=== PATIENT | male | born 1970 | race Caucasian/White ===

== ENCOUNTER 2017-08-01 02:06 | Emergency (ER) | payer MEDICAID ==
[~2017-08-01] VITALS: Ht 177.8 cm; Wt 104.7 kg
[~2017-08-01 02:06] MED LIST: ACET-75 PO; ASPI-611 PO; CLOP75TA33 PO; DULO60CA64 PO; GABA600T2 PO; ISOS30TA6 PO; LISI10TA4 PO; PRAV20TA PO; TRAM50TA2 PO
[2017-08-01] MEDS ORDERED: diazepam 5mg tablet PO ONE (02:15)
[2017-08-01] MEDS ORDERED: ketorolac trometh. 30mg/ml inj. IM ONE (02:15)
[2017-08-01 02:43] VITALS: BP 137/100
== END 2017-08-01 02:45 | disposition home or self-care (01) ==
LOC: ER 02:06
DX: G89.29 Other chronic pain (principal); M54.5 Low back pain; F12.10 Cannabis abuse, uncomplicated; I25.10 Atherosclerotic heart disease of native coronary artery without angina pectoris; E78.00 Pure hypercholesterolemia, unspecified; I10 Essential (primary) hypertension; Z95.5 Presence of coronary angioplasty implant and graft; Z79.82 Long term (current) use of aspirin; Z79.899 Other long term (current) drug therapy
CPT/HCPCS: 96372; 99283; J1885

== ENCOUNTER 2017-11-22 19:13 | Emergency (ER) | payer MEDICAID ==
[~2017-11-22] VITALS: Ht 177.8 cm; Wt 109.0 kg
[2017-11-22] MEDS: nitroGLYCERIN 0.4mg SUBLingual tab SL PRN ×2 (19:32→19:41)
[2017-11-22 19:33] LABS: BASOPHILS % (AUTO) 0.4 % (0-1); EOSINOPHILS # (AUTO) 0.3 X10'3 (0-0.9); HEMATOCRIT 40.8 % (42.0-52.0); HEMOGLOBIN 13.7 g/dl (14.0-17.9); LYMPHOCYTES # (AUTO) 2.8 X10'3 (1.1-4.8); LYMPHOCYTES % (AUTO) 32.3 % (21-51); MEAN CORPUSCULAR HEMOGLOBIN 29.1 PG (27.0-31.0); MEAN CORPUSCULAR HGB CONC 33.5 % (33.0-36.5); MEAN CORPUSCULAR VOLUME 86.8 FL (78-98); MEAN PLATELET VOLUME 6.6 FL (7.4-10.4); MONOCYTES # (AUTO) 0.8 X10'3 (0-0.9); MONOCYTES % (AUTO) 9.5 % (2-12); NEUTROPHILS # (AUTO) 4.8 X10'3 (1.8-7.7); NEUTROPHILS % (AUTO) 54.8 % (42-75); PLATELET COUNT 368 X10'3 (140-440); WHITE BLOOD COUNT 8.7 X10'3 (4.5-11.0)
[2017-11-22 19:53] LABS: PARTIAL THROMBOPLASTIN TIME 27 SECONDS (22-32); PROTHROMBIN TIME 10.1 SECONDS (9.0-12.0)
[2017-11-22 19:58] LABS: ALANINE AMINOTRANSFERASE 27 U/L (12-78); ALBUMIN/GLOBULIN RATIO 1.2 (1.1-1.5); ALKALINE PHOSPHATASE 87 IU/L (46-116); ANION GAP 9 (8-16); ASPARTATE AMINO TRANSFERASE 11 U/L (10-37); BILIRUBIN,TOTAL 0.3 MG/DL (0.1-1.0); BLOOD UREA NITROGEN 7 MG/DL (7-18); BUN/CREATININE RATIO 6.1 (5.4-32.0); CALCIUM 8.9 MG/DL (8.5-10.1); CHLORIDE 106 MMOL/L (99-107); CREATININE 1.14 MG/DL (0.60-1.10); GLUCOSE 101 MG/DL (70-104); POTASSIUM 4.1 MMOL/L (3.5-5.1); SODIUM 139 MMOL/L (135-145); TOTAL CARBON DIOXIDE 24.1 MMOL/L (24-32); TOTAL PROTEIN 7.3 G/DL (6.4-8.2); eGFR 69 ML/MIN
[2017-11-22] MEDS ORDERED: morphine 4 MG/ML inj SYRINge IV ONE ×2 (20:00→22:20)
[2017-11-22 23:27] VITALS: BP 134/93
== END 2017-11-22 23:31 | disposition home or self-care (01) ==
LOC: ER 19:13
DX: R07.89 Other chest pain (principal); R06.02 Shortness of breath; I25.10 Atherosclerotic heart disease of native coronary artery without angina pectoris; E78.00 Pure hypercholesterolemia, unspecified; I10 Essential (primary) hypertension; G89.29 Other chronic pain; F12.10 Cannabis abuse, uncomplicated; Z98.62 Peripheral vascular angioplasty status; Z79.82 Long term (current) use of aspirin; Z79.899 Other long term (current) drug therapy
CPT/HCPCS: 36415; 71045; 80053; 84484; 85025; 85610; 85730; 93005; 96374; 96376; 99285; J2270

== ENCOUNTER 2017-12-06 18:57 | Emergency (ER) | payer MEDICAID ==
[~2017-12-06] VITALS: Ht 177.8 cm; Wt 102.3 kg
[2017-12-06] MEDS ORDERED: LORazepam 2 mg/ml vial IV ONE (20:45)
[2017-12-06] MEDS ORDERED: ketorolac trometh. 30mg/ml inj. IV ONE (20:45)
[2017-12-06] MEDS ORDERED: ondansetron/PF 4mg/2ml inj IV ONE (20:50)
[2017-12-06] MEDS ORDERED: normal saline 1000ML IV soln IVB ONE (20:50)
[2017-12-06 21:32] VITALS: BP 158/98
== END 2017-12-06 21:33 | disposition home or self-care (01) ==
LOC: ER 18:57
DX: R51 Headache (principal); R11.2 Nausea with vomiting, unspecified; F12.10 Cannabis abuse, uncomplicated; I25.10 Atherosclerotic heart disease of native coronary artery without angina pectoris; E78.00 Pure hypercholesterolemia, unspecified; I10 Essential (primary) hypertension; G89.29 Other chronic pain; Z98.61 Coronary angioplasty status; Z79.82 Long term (current) use of aspirin; Z79.899 Other long term (current) drug therapy
CPT/HCPCS: 96361; 96374; 96375; 99284; J1885; J2060; J2405; J7030

== ENCOUNTER 2021-02-04 12:51 | Observation (INO) | payer MEDICAID ==
[~2021-02-04] VITALS: Ht 177.8 cm; Wt 104.5 kg
[~2021-02-04 12:51] MED LIST changes: -DULO60CA64 PO; +DULO60CA65 PO; +GABA600T13 PO; -GABA600T2 PO; -ISOS30TA6 PO; +ISOS30TA84 PO; +LISI10TA27 PO; -LISI10TA4 PO
[2021-02-04] MEDS ORDERED: ondansetron/PF 4mg/2ml inj IV ONE (13:15)
[2021-02-04] MEDS ORDERED: fentaNYL/PF 50MCG/1 ML 2ML syringe IV ONE (13:15)
[2021-02-04] MEDS ORDERED: LORazepam 2 mg/ml vial IV ONE ×2 (13:15→21:30)
[2021-02-04] MEDS ORDERED: meclizine 12.5mg tablet PO ONE (13:15)
[2021-02-04 13:29] LABS: BASOPHILS % (AUTO) 0.6 % (0-1); EOSINOPHILS % (AUTO) 0.5 % (0-6); HEMATOCRIT 44.2 % (42.0-52.0); HEMOGLOBIN 15.1 g/dl (14.0-17.9); LYMPHOCYTES % (AUTO) 25.9 % (21-51); MEAN CORPUSCULAR HEMOGLOBIN 31.2 PG (27.0-31.0); MEAN CORPUSCULAR HGB CONC 34.1 g/dL (33.0-36.5); MEAN CORPUSCULAR VOLUME 91.5 FL (78-98); MEAN PLATELET VOLUME 6.8 FL (7.4-10.4); MONOCYTES # (AUTO) 0.7 X10'3 (0-0.9); MONOCYTES % (AUTO) 9.6 % (2-12); NEUTROPHILS # (AUTO) 4.8 X10'3 (1.8-7.7); NEUTROPHILS % (AUTO) 63.4 % (42-75); PLATELET COUNT 371 X10'3 (140-440); RED BLOOD COUNT 4.83 X10'6 (4.70-6.10); WHITE BLOOD COUNT 7.6 X10'3 (4.5-11.0)
[2021-02-04 13:44] LABS: D-DIMER < 0.19 MG/L FEU (0-0.50)
[2021-02-04 13:45] LABS: ALANINE AMINOTRANSFERASE 16 U/L (12-78); ALBUMIN 4.2 G/DL (3.4-5.0); ALBUMIN/GLOBULIN RATIO 1.3 (1.1-1.5); ALKALINE PHOSPHATASE 64 IU/L (46-116); ANION GAP 12 (8-16); ASPARTATE AMINO TRANSFERASE 11 U/L (10-37); BILIRUBIN,TOTAL 0.4 MG/DL (0.1-1.0); BLOOD UREA NITROGEN 7 MG/DL (7-18); BUN/CREATININE RATIO 6.2 (5.4-32.0); CHLORIDE 104 MMOL/L (99-107); CREATININE 1.13 MG/DL (0.60-1.10); GLUCOSE 91 MG/DL (70-104); POTASSIUM 3.4 MMOL/L (3.5-5.1); SODIUM 139 MMOL/L (135-145); TOTAL PROTEIN 7.5 G/DL (6.4-8.2); eGFR 69 ML/MIN
--- NOTE | 2021-02-04 13:59 | NUR ---
PAIN IS RELIEVED.
[2021-02-04 14:23] LABS: ETHANOL < 0.010 GM/DL (0.0-0.010)
[2021-02-04] MEDS ORDERED: mag hydrox/Alum hydrox/simeth 30ml oral suspension PO PRN (14:55)
[2021-02-04] MEDS ORDERED: morphine 2 MG/ML inj. syringe IV PRN (14:55)
[2021-02-04] MEDS ORDERED: aminophylline 250mg/10ml inj. IV PRN (14:55)
[2021-02-04] MEDS ORDERED: nitroGLYCERIN 0.4mg SUBLingual tab SL PRN (14:55)
[2021-02-04] MEDS ORDERED: ondansetron/PF 4mg/2ml inj IV PRN (14:55)
[2021-02-04] MEDS ORDERED: metoprolol tartrate 1mg/ml inj IV PRN (14:55)
[2021-02-04] MEDS ORDERED: regadenoson 0.4mg/5ml syringe IV ONE (14:55)
[2021-02-04] MEDS ORDERED: acetaminophen 325mg tablet PO PRN (14:55)
[2021-02-04] MEDS ORDERED: magnesium hydroxide 30ml (MOM) UD suspension PO PRN (14:55)
[2021-02-04] MEDS ORDERED: MAGN500C16 PO (14:59)
[2021-02-04] MEDS ORDERED: OMEG-79 PO (14:59)
[2021-02-04] MEDS: morphine 2 MG/ML inj. syringe IV PRN ×3 (15:44→23:49)
[2021-02-04] MEDS: normal saline 1000ml 1,000 ML IV SCH (15:45)
[2021-02-04 15:52] LABS: URINE AMPHETAMINE SCREEN NEGATIVE (Neg); URINE BARBITUATE SCREEN NEGATIVE (Neg); URINE BENZODIAZEPINES SCREEN NEGATIVE (Neg); URINE CANNABINOID SCREEN NEGATIVE (Neg); URINE COCAINE SCREEN NEGATIVE (Neg); URINE METHADONE SCREEN NEGATIVE (Neg); URINE OPIATE SCREEN NEGATIVE (Neg); URINE PHENCYCLIDINE SCREEN NEGATIVE (Neg)
--- NOTE | 2021-02-04 17:34 | NUR ---
PT REQUESTING SOMETHING TO EAR, PT HAS A HEART HEALTHY DIET ORDERED. PT GIVEN A SANDWICH, JUICE AND JELLO.
[2021-02-04] MEDS ORDERED: nitroGLYCERIN 0.4mg/hour patch TD ONE (17:45)
[2021-02-04] MEDS ORDERED: regadenoson 0.4mg/5ml syringe IV PRN (18:25)
--- NOTE | 2021-02-04 19:41 | NUR ---
Spoke with Dr. Taylor in department about pt pain not under control with current prescribed prns. stated she will not order more pain medication at this time.
[2021-02-04] MEDS: carVEDilol 3.125mg tablet PO SCH (19:49)
[2021-02-04] MEDS: heparin, porcine 5000 units/ml vial SQ SCH (19:52)
[2021-02-04] MEDS ORDERED: diphenhydrAMINE 50 mg/ml inj IV ONE (21:30)
[2021-02-05] VITALS (9 sets, daily range): BP systolic 111–168; BP diastolic 70–107
--- NOTE | 2021-02-05 00:31 | NUR ---
Called Dr. Taylor re: patient requesting Ativan. Per , she will not be ordering this medication. Admitting MD Swift's orders are the current orders per Dr. Taylor.
[2021-02-05] MEDS: normal saline 1000ml 1,000 ML IV SCH ×3 (00:34→23:14)
--- NOTE | 2021-02-05 00:40 | NUR ---
Warm blanket and juice provided for patient.
[2021-02-05 01:47] LABS: BASOPHILS # (AUTO) 0.1 X10'3 (0-0.2); BASOPHILS % (AUTO) 0.7 % (0-1); EOSINOPHILS # (AUTO) 0.1 X10'3 (0-0.9); HEMATOCRIT 41.7 % (42.0-52.0); LYMPHOCYTES # (AUTO) 2.1 X10'3 (1.1-4.8); LYMPHOCYTES % (AUTO) 30.9 % (21-51); MEAN CORPUSCULAR HEMOGLOBIN 30.5 PG (27.0-31.0); MEAN CORPUSCULAR HGB CONC 33.5 g/dL (33.0-36.5); MEAN PLATELET VOLUME 6.9 FL (7.4-10.4); MONOCYTES # (AUTO) 0.7 X10'3 (0-0.9); MONOCYTES % (AUTO) 9.7 % (2-12); NEUTROPHILS # (AUTO) 3.9 X10'3 (1.8-7.7); NEUTROPHILS % (AUTO) 56.7 % (42-75); PLATELET COUNT 333 X10'3 (140-440); RED BLOOD COUNT 4.58 X10'6 (4.70-6.10); RED CELL DISTRIBUTION WIDTH 13.8 % (11.5-14.5); WHITE BLOOD COUNT 6.9 X10'3 (4.5-11.0)
[2021-02-05 01:55] LABS: ANION GAP 7 (8-16); CHLORIDE 106 MMOL/L (99-107); GLUCOSE 108 MG/DL (70-104); POTASSIUM 3.4 MMOL/L (3.5-5.1); SODIUM 140 MMOL/L (135-145); TOTAL CARBON DIOXIDE 26.6 MMOL/L (24-32)
[2021-02-05 01:56] LABS: ALBUMIN 3.2 G/DL (3.4-5.0); BLOOD UREA NITROGEN 8 MG/DL (7-18); BUN/CREATININE RATIO 7.8 (5.4-32.0); CALCIUM 8.1 MG/DL (8.5-10.1); CREATININE 1.03 MG/DL (0.60-1.10); eGFR 76 ML/MIN
--- NOTE | 2021-02-05 02:43 | NUR ---
pt is sleeping, no needs at this time.
[2021-02-05] MEDS: morphine 2 MG/ML inj. syringe IV PRN ×5 (03:50→23:12)
--- NOTE | 2021-02-05 07:46 | NUR ---
called ED to get report on hold ....... ED hung up.
--- NOTE | 2021-02-05 07:58 | NUR ---
Patient in room ED 16. I have received report from Elena BOLAND from ED and had the opportunity to ask questions and assume patient care.
[2021-02-05] MEDS: atorvastatin 20mg tablet PO SCH (08:00)
--- NOTE | 2021-02-05 09:17 | NUR ---
pt went to get a Phoebe
[2021-02-05] MEDS: carVEDilol 3.125mg tablet PO SCH ×2 (10:44→19:08)
[2021-02-05] MEDS: aspirin 81mg tablet.DR PO SCH (10:45)
[2021-02-05] MEDS: heparin, porcine 5000 units/ml vial SQ SCH ×2 (10:45→19:07)
[2021-02-05] MEDS: LORazepam 2 mg/ml vial IV PRN ×3 (12:28→21:34)
--- NOTE | 2021-02-05 16:00 | NUR ---
pt worry and anxious about his dog. States he does not know what he would do if he lost him. Pt states sometimes he does not want to wake up but does not think about killing himself. UNLESS, something happens to his dog, pt states this dog is his emotional support dog and he cannot live without him. Sitter on site.
--- NOTE | 2021-02-05 17:52 | NUR ---
PAGER ID: [phone] MESSAGE: Andres Leighjonathan [id number] - Can we get K protocol please or 40mEq dose to replace. Thank you. Delores Sharma.
--- NOTE | 2021-02-05 17:52 | NUR ---
Pt called me into his room stating he is upset. Pt was told by Starr WHYTE to call [place] and transfer his medicaid to [place]. pt called and [place] medicaid rep cancelled his medicaid. Pt feels he cannot trust her. He also upset because Starr told him pt was cleared medically to go. She was trying to help pt to go to mental health here in the hospital to get meds under control. Pt states he cannot trust her since she "messed" up his stuff. Spoke to pt and ask him to wait for [facility] to come and assess him to see what the plan is. Then pt can worry about the nest step. pt is super anxious about his dog and continues to be fixated on not loosing his dog. He states he is very depress. Charge nurse is aware of events. Sitter on site.
--- NOTE | 2021-02-05 18:43 | NUR ---
Problems reprioritized. Patient report given, questions answered & plan of care reviewed with Nola BOLAND.
--- NOTE | 2021-02-05 18:53 | NUR ---
Patient in room PCU 3012. I have received report from Delores BOLAND and had the opportunity to ask questions and assume patient care.
[2021-02-05] MEDS ORDERED: potassium Cl 40MEQ/1/2NS 520ml 520 ML IV PRN (19:55)
[2021-02-05] MEDS ORDERED: magnesium Cl slow-release 64mg tablet PO PRN (19:55)
[2021-02-05] MEDS ORDERED: potassium Cl 20 mEq SR tablet PO PRN ×2 (19:55)
[2021-02-05] MEDS ORDERED: magnesium 4gm in 100ml NS 100 ML IV PRN (19:55)
[2021-02-05] MEDS ORDERED: diphenhydrAMINE 25mg capsule PO PRN (19:55)
[2021-02-05] MEDS: K and/or MAG REPLACEMENT MC SCH (20:00)
[2021-02-06 06:00] VITALS: BP 139/98
--- NOTE | 2021-02-06 06:16 | NUR ---
Problems reprioritized. Patient report given, questions answered & plan of care reviewed with Katie BOLAND.
[2021-02-06 06:28] LABS: BASOPHILS # (AUTO) 0.1 X10'3 (0-0.2); BASOPHILS % (AUTO) 1.2 % (0-1); EOSINOPHILS # (AUTO) 0.2 X10'3 (0-0.9); EOSINOPHILS % (AUTO) 2.3 % (0-6); HEMATOCRIT 43.9 % (42.0-52.0); HEMOGLOBIN 14.6 g/dl (14.0-17.9); LYMPHOCYTES # (AUTO) 2.3 X10'3 (1.1-4.8); LYMPHOCYTES % (AUTO) 30.4 % (21-51); MEAN CORPUSCULAR HEMOGLOBIN 30.5 PG (27.0-31.0); MEAN CORPUSCULAR HGB CONC 33.3 g/dL (33.0-36.5); MEAN CORPUSCULAR VOLUME 91.5 FL (78-98); MEAN PLATELET VOLUME 7.5 FL (7.4-10.4); MONOCYTES # (AUTO) 0.8 X10'3 (0-0.9); MONOCYTES % (AUTO) 10.8 % (2-12); NEUTROPHILS # (AUTO) 4.2 X10'3 (1.8-7.7); NEUTROPHILS % (AUTO) 55.3 % (42-75); PLATELET COUNT 355 X10'3 (140-440); RED CELL DISTRIBUTION WIDTH 13.9 % (11.5-14.5); WHITE BLOOD COUNT 7.6 X10'3 (4.5-11.0)
[2021-02-06 06:53] LABS: ALBUMIN 3.5 G/DL (3.4-5.0); ANION GAP 10 (8-16); BLOOD UREA NITROGEN 14 MG/DL (7-18); BUN/CREATININE RATIO 12.5 (5.4-32.0); CALCIUM 8.5 MG/DL (8.5-10.1); CHLORIDE 106 MMOL/L (99-107); CREATININE 1.12 MG/DL (0.60-1.10); GLUCOSE 97 MG/DL (70-104); MAGNESIUM 2.2 MG/DL (1.5-2.4); SODIUM 140 MMOL/L (135-145); TOTAL CARBON DIOXIDE 23.9 MMOL/L (24-32); eGFR 69 ML/MIN
[2021-02-06] MEDS: aspirin 81mg tablet.DR PO SCH (07:27)
[2021-02-06] MEDS: heparin, porcine 5000 units/ml vial SQ SCH (07:27)
[2021-02-06] MEDS: atorvastatin 20mg tablet PO SCH (07:27)
[2021-02-06] MEDS: carVEDilol 3.125mg tablet PO SCH (07:28)
[2021-02-06] MEDS: morphine 2 MG/ML inj. syringe IV PRN (07:28)
[2021-02-06] MEDS: normal saline 1000ml 1,000 ML IV SCH (07:34)
[2021-02-06] MEDS: K and/or MAG REPLACEMENT MC SCH (08:00)
[2021-02-06] MEDS ORDERED: ATOR20TA66 PO (08:49)
[2021-02-06] MEDS ORDERED: COR3.125T PO (08:49)
--- NOTE | 2021-02-06 10:37 | NUR ---
discharge teaching done. all questions answered. copy of signed paper in chart. iv dcd with no complications. tele discontinued. all Addendum: 02/06/21 at 1038 by Katie Self RN all belongings with pt. pt walked down to lobby to yuilop SL
== END 2021-02-06 10:35 | disposition home or self-care (01) ==
LOC: ER 12:52 → ED HOLD 14:53 → UNDOADMOB 14:53 → EDBEDREQ 02-05 06:37 → PCU 3S 02-05 08:11
PROVIDERS: ADMIT Family Medicine; ATTEND Family Medicine
DX: R07.89 Other chest pain (principal); R45.851 Suicidal ideations; I25.10 Atherosclerotic heart disease of native coronary artery without angina pectoris; I10 Essential (primary) hypertension; E78.00 Pure hypercholesterolemia, unspecified; F41.9 Anxiety disorder, unspecified; G89.29 Other chronic pain; Z98.890 Other specified postprocedural states; Z95.5 Presence of coronary angioplasty implant and graft
CPT/HCPCS: 36415; 71045; 78452; 80048; 80053; 80305; 80320; 83735; 83880; 84443; 84484; 85025; 85379; 85610; 87081; 93005; 93017; 93306; 96361; 96372; 96374; 96375; 96376; 99285; A9500; G0378; J1200; J1644; J2060; J2270; J2405; J2785; J3010; J7030; J8597; Q0163